=== PATIENT | male | born 1995 | race Caucasian/White ===

== ENCOUNTER 2018-02-21 11:22 | Outpatient (REF) | payer OTHER, SELFPAY ==
[2018-02-21 13:20] LABS: Anion Gap 6.3 mmol/L (3-11); BUN 12 mg/dL (7-18); CO2 30.7 mmol/L (21.0-32.0); CREATININE 0.92 mg/dL (0.70-1.30); Calcium 9.7 mg/dL (8.5-10.1); Chloride 104 mmol/L (98-107); Cholesterol 236 mg/dL (50-200); Glucose 92 mg/dL (70-100); HDL Cholesterol 36 mg/dL (40-60); LDL CHOLESTEROL 170 mg/dL (<100); Sodium 141 mmol/L (136-145); Triglyceride 178 mg/dL (30-150)
== END 2018-02-21 11:42 ==
LOC: NCHCN 11:22
PROVIDERS: PCP Nurse Practitioner Family; Visit Provider Nurse Practitioner Family
DX: Z00.00 Encounter for general adult medical examination without abnormal findings (principal); E66.9 Obesity, unspecified
CPT/HCPCS: 80048; 80061; 83721

== ENCOUNTER 2019-09-01 12:53 | Outpatient (REF) | payer MEDICAID, SELFPAY ==
[2019-09-01 15:15] LABS: Absolute Basophil Count 0.03 k/cumm (0.0-0.2); Absolute Eosinophil Count 0.17 k/cumm (0.0-0.7); Absolute Lymphocyte Count 2.36 k/cumm (1.2-3.4); Absolute Monocyte Count 0.64 k/cumm (0.11-0.7); Absolute Neutrophil Count 3.77 k/cumm (1.2-6.7); Basophils % 0.4; Eosinophils % 2.4; HCT 45.8 % (40.0-50.0); HGB 15.4 g/dL (13.5-17.5); Lymphocytes % 33.9; Mean Corp. HGB Concentration 33.6 g/dL (32.0-36.0); Mean Corpuscular Hemoglobin 29.7 pg (27.0-33.0); Mean Corpuscular Volume 88.4 fL (80-95); Mean Platelet Volume 9.2 fL (8.0-11.0); Monocytes % 9.2; Neutrophils % 54.1; Platelet Count 584 x1000/uL (130-400); RBC 5.18 m/cumm (4.50-6.00); RBC Distribution Width 13.3 % (11.8-14.1); White Blood Cell Count 6.97 k/cumm (4.4-10.8)
[2019-09-01 16:04] LABS: ALT 44 U/L (16-63); AST 34 U/L (15-37); Albumin 4.2 g/dL (3.4-5.0); Alkaline Phosphatase 74 U/L (46-116); Anion Gap 6.9 mmol/L (3-11); BUN 9 mg/dL (7-18); Bilirubin, Total 0.4 mg/dL (0.2-1.0); CO2 27.1 mmol/L (21.0-32.0); CREATININE 1.02 mg/dL (0.70-1.30); Calcium 9.6 mg/dL (8.5-10.1); Calculated LDL 155 mg/dL (<100); Chloride 105 mmol/L (98-107); Cholesterol 214 mg/dL (<200); Glucose 90 mg/dL (74-106); HDL Cholesterol 37 mg/dL (40-60); Potassium 4.3 mmol/L (3.5-5.1); Sodium 139 mmol/L (136-145); TSH (W/Ref FT4) 1.19 uIU/mL (0.36-3.74); Total Protein 7.1 g/dL (6.4-8.2); Triglyceride 112 mg/dL (<150); Vitamin B12 524 pg/mL (193-986)
[2019-09-02 10:26] LABS: HIV-1/2 Ag & Ab Screen Negative (Negative)
== END 2019-09-01 13:13 ==
LOC: NCHCN 12:53
PROVIDERS: PCP Nurse Practitioner Family; Visit Provider Family Medicine
DX: D47.3 Essential (hemorrhagic) thrombocythemia (principal); Z11.4 Encounter for screening for human immunodeficiency virus [HIV]; F31.9 Bipolar disorder, unspecified; E78.5 Hyperlipidemia, unspecified
CPT/HCPCS: 80053; 80061; 87389; 82607; 84443; 85025

== ENCOUNTER 2019-12-28 15:15 | Outpatient (REF) | payer BC, MEDICAID, SELFPAY ==
[2020-01-01 04:13] LABS: Patient Race White; SARS-CoV-2 RNA Undetected (Undetected); SARS-CoV-2 Specimen Source Nasal
== END 2019-12-28 15:35 ==
LOC: NCHCN 15:15
PROVIDERS: PCP Nurse Practitioner Family; Visit Provider Nurse Practitioner Family
DX: Z20.828 Contact with and (suspected) exposure to other viral communicable diseases (principal)
CPT/HCPCS: U0003

== ENCOUNTER 2020-02-10 15:41 | Outpatient (REF) | payer MEDICAID, SELFPAY ==
[2020-02-12 13:17] LABS: Syphilis Total Ab w/Reflex Nonreactive (Nonreactive)
[2020-02-13 00:46] LABS: Chlamydia amplified RNA Negative (Negative); N gonorrhoeae amplified RNA Negative (Negative); Source URETHRAL
[2020-02-15 15:49] LABS: HIV-1/2 Ag & Ab Screen Negative (Negative)
== END 2020-02-10 16:01 ==
LOC: NCHCN 15:41
PROVIDERS: PCP Nurse Practitioner Family; Visit Provider Family Medicine
DX: Z20.2 Contact with and (suspected) exposure to infections with a predominantly sexual mode of transmission (principal)
CPT/HCPCS: 87389; 87491; 87591; 86780